=== PATIENT | male | born 1965 | race Caucasian/White ===

== ENCOUNTER → 2017-12-20 11:00 | Outpatient (CLI) | payer BC, SELFPAY ==
[2017-12-20 14:02] LABS: ALT 74 U/L (12-78); AST 35 U/L (15-37); Alkaline Phosphatase 71 U/L (46-116); Anion Gap 8.4 mmol/L (3-11); BUN 14 mg/dL (7-18); Bilirubin, Total 0.7 mg/dL (0.2-1.0); CO2 27.6 mmol/L (21.0-32.0); CREATININE 0.97 mg/dL (0.70-1.30); Calcium 8.7 mg/dL (8.5-10.1); Chloride 103 mmol/L (98-107); Glucose 88 mg/dL (70-100); Sodium 139 mmol/L (136-145); Total Protein 7.6 g/dL (6.4-8.2)
[2017-12-20 14:20] LABS: ESR 11 MM/HR (1-20)
[2017-12-21 12:37] LABS: HCT 48.3 % (40.0-50.0); Mean Corp. HGB Concentration 35.2 g/dL (32.0-36.0); Mean Corpuscular Hemoglobin 31.8 pg (27.0-33.0); Mean Corpuscular Volume 90.4 fL (80-95); Platelet Count 303 x1000/uL (130-400); RBC 5.34 m/cumm (4.50-6.00); RBC Distribution Width 12.5 % (11.8-14.1); White Blood Cell Count 8.77 k/cumm (4.4-10.8)
[2017-12-21 13:29] LABS: Lyme Ab w Rflx to Lyme Confirm Negative
[2017-12-22 16:07] LABS: Titer <1:64 titer
== END ==
PROVIDERS: PCP Family Medicine; Visit Provider Family Medicine
DX: L30.8 Other specified dermatitis (principal); M79.604 Pain in right leg
CPT/HCPCS: 36415; 80053; 85027; 85652; 86156; 86157; 86618

== ENCOUNTER 2018-07-19 02:18 | Outpatient (CLI) | payer BC, SELFPAY ==
[2018-07-19 11:25] LABS: Abs Immature Grans 0.03 k/cumm (0.0-0.09); Absolute Basophil Count 0.06 k/cumm (0.0-0.2); Absolute Eosinophil Count 0.35 k/cumm (0.0-0.7); Absolute Lymphocyte Count 1.36 k/cumm (1.2-3.4); Absolute Monocyte Count 0.54 k/cumm (0.11-0.7); Absolute Neutrophil Count 3.81 k/cumm (1.2-6.7); Eosinophils % 5.7; HCT 49.5 % (40.0-50.0); HGB 17.5 g/dL (13.5-17.5); Immature Grans % 0.5; Lymphocytes % 22.1; Mean Corp. HGB Concentration 35.4 g/dL (32.0-36.0); Mean Corpuscular Hemoglobin 31.7 pg (27.0-33.0); Mean Corpuscular Volume 89.7 fL (80-95); Mean Platelet Volume 9.4 fL (8.0-11.0); Monocytes % 8.8; Neutrophils % 61.9; Platelet Count 277 x1000/uL (130-400); RBC 5.52 m/cumm (4.50-6.00); RBC Distribution Width 12.3 % (11.8-14.1); White Blood Cell Count 6.15 k/cumm (4.4-10.8)
[2018-07-19 11:54] LABS: ALT 64 U/L (12-78); Cholesterol 191 mg/dL (50-200); HDL Cholesterol 45 mg/dL (40-60); LDL CHOLESTEROL 117 mg/dL (<100); Triglyceride 205 mg/dL (30-150)
== END 2018-07-19 02:38 ==
PROVIDERS: PCP Family Medicine; Visit Provider Family Medicine
DX: Z13.220 Encounter for screening for lipoid disorders (principal); L30.8 Other specified dermatitis; M79.604 Pain in right leg
CPT/HCPCS: 36415; 80061; 83721; 84460; 85025

== ENCOUNTER 2018-09-25 08:00 | Day surgery (SDC) | payer BC, SELFPAY ==
--- NOTE | 2018-09-25 06:14 | W.COLOREPORT ---
Date of service: 09/25/18 Time of Service: : Colonoscopy Report Date of procedure: 09/25/18 Pre-op diagnosis general: Colon Cancer Screening and Family history of colon cancer Post-op diagnosis procedure note: other (rectal polyps, Cassidy-diverticulosis) Procedure: Colonoscopy with polypectomy by cold forceps Surgeon: Ronda Tenorio Anesthesia proc note operative: other (General/ ASA 2/ Isaura Blankenship, KYLE) Estimated blood loss (mL): 4 Pathology: other (Rectal polyps) Complications: None Disposition: same day Indications: Mr. Young is a pleasant 53 year old male seen in the office for a screening colonoscopy. He has a family history of colon cancer in an aunt. He had a colonoscopy in his 20's that was normal. Risks, benefits and complications have been reviewed. Complications include but are not limited to bleeding, pain, perforation, missed small lesion/polyp, sore throat, aspiration and adverse reaction to the medications. Questions were entertained and answered to their satisfaction and they wished to proceed. No guarantees were given or implied. Prep: Miralax/Dulcolax Procedure Start Time: : Procedure End Time: :45 Retraction Time: 12 minutes Findings: Cassidy-diverticulosis noted 2 small <10 mm sessile polyps in the rectum Procedure Description: After informed consent was obtained the patient was taken to the procedure room and placed in a left decubitous position. Monitors were applied and a time out was done. The patients name, date of , procedure, allergies to medications and metal in their body was reviewed. The patient was then sedated. Once sedated and comfortable a rectal exam was done. External exam was normal. Internal exam revealed a normal sphincter tone and no palpable masses. The prostate smooth. The scope was then introduced and retro-flexed. No internal hemorrhoids, polyps or masses were identified. The scope was then advanced to the cecum without difficulty. The TI and appendiceal orifice were identified. The prep was adequate. The scope was then slowly retracted over 12 minutes back into the rectum. Polyps were removed with cold forceps in the rectum. There was also cassidy-diverticulosis of the colon. The scope was removed and the patient was woken up and taken back to Same day surgery in stable condition. The patient tolerated the procedure well and there were no immediate complications. Follow up: Follow up will depend on final pathology, unless they develop changes in bowel habits or other new gastrointestinal complaints.
--- NOTE | 2018-09-25 06:17 | W.PM.DSUDISC ---
Discharge Plan Disposition Patient Disposition: HOME Condition: Good Discharge Details Reason For Visit: Colon Cancer screening Attending Provider: Ronda Tenorio Primary Care Provider: Silvio Santoro Home Meds and New Rx's Prescriptions: Continued ibuprofen [IBU-200] 200 mg tablet 200 mg PO QID PRNRF: 0 cannabidiol (CBD) extract 100 mg/mL solution PO RF: 0 acetaminophen [Acetaminophen Extra Strength] 500 mg Tablet 500 mg PO PRN PRNRF: 0 Discontinued polyethylene glycol 3350 17 gram/dose powder 238 g PO ONCE Qty: 238 RF: 0 bisacodyl [Dulcolax (bisacodyl)] 5 mg tablet,delayed release (DR/EC) 5 mg PO ONCE Qty: 4 RF: 0 Discharge Instructions Instructions: Colonoscopy (DC), Diverticulosis (DC), Colorectal Polyps (DC) Additional Instructions: Findings: 2 small rectal polyps Boyd-diverticulosis Follow up: depends on final pathology Please call if you develop: fevers >101.5 Nausea or Vomiting Abdominal pain that is not transient DAY SURGERY UNIT POST COLONOSCOPY INSTRUCTIONS 1. Because there will be medication in your system for the next 24 hours, you may feel a little sleepy. Your coordination will be affected. Therefore: a. Do not drive or operate dangerous equipment for 24 hours. b. Do not drink alcohol beverages for 24 hours (not even beer). c. Plan to go home and rest for the day. 2. Generally there are no restrictions on your activity after a day or so has gone by, but you may feel a bit fatigued for a few days. 3 After you arrive home you may have a light meal and return to a normal diet as you can tolerate it without feeling sick to your stomach. 4. After surgery, you may feel pain or discomfort. This should be only transient, but if it persists please contact your doctor. 5. If there are any questions regarding the findings of your procedure, please feel free to contact your doctor. 6. If you are unable to contact your doctor with a problem, contact the hospital at [phone]. 7. Continue all your regular medications unless directed otherwise. I understand the above instructions and have no questions. Signature of Patient or Responsible Adult Escort Date/Time Name of Responsible Adult Escort Signature of Nurse Date/Time Activity:: Activity as Tolerated Diet:: high fiber diet Discharge Orders Discharge Orders: Discharge Order (Routine); Ordered 09/25/18 Ordered By: Ronda Tenorio DS: Diagnosis Discharge Diagnosis (1) S/P colonoscopy: Status: Acute (2) Colorectal polyps: Status: Acute (3) Diverticulosis: Status: Acute
[2018-09-25 08:15] VITALS: BP 132/84; PULSE 65; RESP 19; TEMP 36.5; O2SAT 97
[2018-09-25] MEDS: Lactated Ringers 1,000 ML 80 ML IV (08:36)
--- NOTE | 2018-09-25 09:26 | BOWEL_PTH ---
PATIENT: DARNELL TAYLOR LOC: [facility] U#:[id number] AGE/SX: 53/M ROOM: RE09/25/[address]: Ronda Tenorio MD : 1965 BED: DIS: 09/25/2018 SPEC #: [id number] RECD: 09/25/18 12:46 STATUS: HORTENSIA RE #: [id number] ALEKSANDAR: 09/25/18 09:[address]: Ronda Tenorio DEPT: Surgical Specimen RECD BY: Shannon Arguello ENTERED: 09/25/18 12:47 SP TYPE: Bowel OTHR DR: Silvio Santoro MD Tissues: 1 - BIOPSY BOWEL Procedures: GROSS AND MICRO LEVEL 4 Comments: [id number]
[2018-09-25 10:55] VITALS: BP 107/65; PULSE 58; RESP 18; TEMP 35.9; O2SAT 98
== END 2018-09-25 10:50 | disposition home or self-care (01) ==
PROVIDERS: PCP Family Medicine; Visit Provider Surgery
PROC: 0DJD8ZZ Inspection of Lower Intestinal Tract, Via Natural or Artificial Opening Endoscopic (ICD-10-PCS; CPT 45378; principal; 2018-09-25 09:30)
DX: Z12.11 Encounter for screening for malignant neoplasm of colon (principal); K62.1 Rectal polyp; K57.30 Diverticulosis of large intestine without perforation or abscess without bleeding
CPT/HCPCS: 45380; 88305

== ENCOUNTER 2019-09-24 10:27 | Outpatient (CLI) | payer BC, SELFPAY ==
[2019-09-25 18:24] LABS: COVID-19 RT-PCR UVMMC Result Negative (Negative)
== END 2019-09-24 10:47 ==
PROVIDERS: PCP Family Medicine; Visit Provider Family Medicine
DX: F50.9 Eating disorder, unspecified (principal)
CPT/HCPCS: U0003

== ENCOUNTER 2019-12-05 11:09 | Outpatient (CLI) | payer OTHER, SELFPAY ==
--- NOTE | 2019-12-05 11:00 | DI.RAD_ITS ---
EXAM: XR SHOULDER LT COMPLETE 2+V CLINICAL HISTORY: left shoulder pain TECHNIQUE: COMPARISON: No exams were available for comparison FINDINGS: Three views were obtained. There may be mild narrowing of the cartilaginous joint space of the gleno humeral joint. There appear to be moderate hypertrophic changes of the acromioclavicular joint. No other significant bony or soft tissue abnormality seen. IMPRESSION:
== END 2019-12-05 11:29 ==
PROVIDERS: PCP Family Medicine; Referring Provider Family Medicine; Visit Provider Student in an Organized Health Care Education/Training Program
DX: M25.512 Pain in left shoulder (principal)
CPT/HCPCS: 73030